=== PATIENT | female | born 1960 | race Caucasian/White ===

== ENCOUNTER 2019-01-21 07:49 | Outpatient (CLI) | payer MEDICAID ==
--- NOTE | 2019-01-27 09:13 | Mammography Report ---
Reason: MAMMOGRAM YEARLY SCREENING Procedure Date: 01/21/2019 Accession Number: [id number] / [id number] Procedure: JENNA - Screening Mammo w/Anthony CPT Code: FULL RESULT: EXAM: Screening Mammo w/Anthony DATE: 01/21/2019 8:33 AM CLINICAL HISTORY: Screening encounter. No reported risk factors. TECHNIQUE: (B) - Bilateral CC, laterally exaggerated CC, MLO views were obtained. COMPARISON: None PARENCHYMAL PATTERN: (A) - The breast(s) demonstrate(s) scattered fibroglandular densities. FINDINGS: There are coarse typically benign calcifications. There are no suspicious masses, calcifications, or areas of distortion. IMPRESSION: Benign findings. BI-RADS category 2. RECOMMENDATION: (ANNUAL) - Recommend routine annual screening mammography. BI-RADS CATEGORY: (2) - Benign Findings. STANDARD QUALIFYING STATEMENTS: 1. This examination was not reviewed with the aid of Computer-Aided Detection (CAD). 2. A negative or benign imaging report should not preclude biopsy if clinically suspicious findings are present. 3. Dense breasts may obscure an underlying neoplasm. 4. This examination was reviewed with the aid of 3D breast imaging (tomosynthesis).
== END 2019-01-21 07:50 | disposition home or self-care (01) ==
LOC: DI 07:49
PROVIDERS: ATTEND Nurse Practitioner
DX: Z12.31 Encounter for screening mammogram for malignant neoplasm of breast (principal)
CPT/HCPCS: 77063; 77067

== ENCOUNTER 2019-05-10 07:20 | Outpatient (CLI) | payer BC ==
[2019-05-10 07:59] LABS: BASOPHILS % (AUTO) 0.6 %; EOSINOPHILS # (AUTO) 0.1 10^3/uL (0.0-0.7); EOSINOPHILS % (AUTO) 2.1 %; HGB - HEMOGLOBIN 13.6 g/dL (12.0-16.0); LYMPHOCYTES # (AUTO) 1.6 10^3/uL (1.5-3.5); LYMPHOCYTES % (AUTO) 23.9 %; MEAN CORPUSCULAR HEMOGLOBIN 29.8 pg (27.0-31.0); MEAN CORPUSCULAR HGB CONC 32.9 g/dL (32.0-36.0); MEAN CORPUSCULAR VOLUME 90.8 fL (81.0-99.0); MEAN PLATELET VOLUME 10.9 fL (7.9-10.8); MONOCYTES # (AUTO) 0.3 10^3/uL (0.0-1.0); MONOCYTES % (AUTO) 5.2 %; NEUTROPHILS # (AUTO) 4.4 10^3/uL (1.5-6.6); NEUTROPHILS % (AUTO) 67.9 %; PLT - PLATELET COUNT 259 10^3/uL (130-450); RED BLOOD COUNT 4.56 10^6/uL (4.20-5.40); RED CELL DISTRIBUTION WIDTH 12.9 % (12.0-15.0); WHITE BLOOD COUNT 6.5 x10^3/uL (4.8-10.8)
[2019-05-10 08:02] LABS: HB2 TOTAL 14.3 g/dL; HEMOGLOBIN A1C 0.56 g/dL; HEMOGLOBIN A1C % 5.7 % (4.6-6.2)
[2019-05-10 08:13] LABS: ALBUMIN 4.1 g/dL (3.2-5.5); ALBUMIN/GLOBULIN RATIO 1.2 (1.0-2.2); ALKALINE PHOSPHATASE 72 IU/L (42-121); ALT ALANINE AMINOTRANSFERASE 19 IU/L (10-60); AST ASPARTATE AMINOTRANSFERASE 21 IU/L (10-42); BILIRUBIN,TOTAL 0.7 mg/dL (0.2-1.0); BUN - BLOOD UREA NITROGEN 16 mg/dL (6-20); CALCIUM 8.9 mg/dL (8.5-10.3); CARBON DIOXIDE - CO2 26 mmol/L (21-32); CHLORIDE 103 mmol/L (101-111); CHOL/HDL RATIO 5.5 (<4.4); CHOLESTEROL 238 mg/dL; CREATININE 0.8 mg/dL (0.4-1.0); GFR - MDRD 74 (>89); GLUCOSE 108 mg/dL (70-100); HDL CHOLESTEROL 43 mg/dL; LDL CHOLESTEROL,CALCULATED 175 mg/dL; LDL/HDL RATIO 4.1 (<4.4); SODIUM 139 mmol/L (135-145); TOTAL PROTEIN 7.5 g/dL (6.7-8.2); VLDL CHOLESTEROL 20 mg/dL
== END 2019-05-10 07:21 | disposition home or self-care (01) ==
LOC: LAB 07:20
PROVIDERS: ATTEND Nurse Practitioner
DX: Z00.00 Encounter for general adult medical examination without abnormal findings (principal); Z13.29 Encounter for screening for other suspected endocrine disorder; E78.5 Hyperlipidemia, unspecified; R73.01 Impaired fasting glucose; I10 Essential (primary) hypertension
CPT/HCPCS: 36415; 80053; 80061; 83036; 83721; 84443; 85025

== ENCOUNTER 2020-01-18 18:55 | Outpatient (CLI) | payer BC | END 2020-01-18 18:56 | disposition critical access hospital (66) | LOC: EMS 18:55 | PROVIDERS: ATTEND Surgery | DX: R07.89 Other chest pain (principal) | CPT/HCPCS: A0425; A0427 ==

== ENCOUNTER 2020-01-18 19:26 | Emergency (ER) | payer BC ==
[2020-01-18 19:58] LABS: BASOPHILS # (AUTO) 0.1 10^3/uL (0.0-0.1); BASOPHILS % (AUTO) 0.6 %; EOSINOPHILS # (AUTO) 0.2 10^3/uL (0.0-0.7); EOSINOPHILS % (AUTO) 2.6 %; HGB - HEMOGLOBIN 13.3 g/dL (12.0-16.0); LYMPHOCYTES # (AUTO) 2.6 10^3/uL (1.5-3.5); LYMPHOCYTES % (AUTO) 30.4 %; MEAN CORPUSCULAR HEMOGLOBIN 30.7 pg (27.0-31.0); MEAN CORPUSCULAR HGB CONC 34.4 g/dL (32.0-36.0); MEAN CORPUSCULAR VOLUME 89.4 fL (81.0-99.0); MEAN PLATELET VOLUME 10.9 fL (7.9-10.8); MONOCYTES # (AUTO) 0.4 10^3/uL (0.0-1.0); MONOCYTES % (AUTO) 5.1 %; NEUTROPHILS # (AUTO) 5.2 10^3/uL (1.5-6.6); NEUTROPHILS % (AUTO) 61.1 %; PLT - PLATELET COUNT 258 10^3/uL (130-450); RED BLOOD COUNT 4.33 10^6/uL (4.20-5.40); RED CELL DISTRIBUTION WIDTH 12.3 % (12.0-15.0); WHITE BLOOD COUNT 8.5 x10^3/uL (4.8-10.8)
--- NOTE | 2020-01-18 20:06 | XRAY Report ---
PROCEDURE: Chest 1 View X-Ray INDICATIONS: cp TECHNIQUE: One view of the chest was acquired. COMPARISON: none. FINDINGS: Surgical changes and devices: None. Lungs and pleura: No pleural effusions or pneumothorax. Lungs are clear. Mediastinum: Mediastinal contours appear normal. Heart size is normal. Bones and chest wall: No suspicious bony lesions. Overlying soft tissues appear unremarkable. IMPRESSION: No acute cardiopulmonary disease. Reviewed by: Kimberly Elmore MD on 01/18/2020 8:04 PM PDT Approved by: Kimberly Elmore MD on 01/18/2020 8:04 PM PDT Station ID: [id number]
[2020-01-18 20:09] LABS: ALBUMIN 4.1 g/dL (3.2-5.5); ALBUMIN/GLOBULIN RATIO 1.3 (1.0-2.2); BILIRUBIN,TOTAL 0.4 mg/dL (0.2-1.0); CALCIUM 9.1 mg/dL (8.5-10.3); CREATININE 0.7 mg/dL (0.4-1.0); TOTAL PROTEIN 7.2 g/dL (6.7-8.2)
--- NOTE | 2020-01-18 20:11 | ED Physician Documentation ---
PD HPI ABD PAIN - Stated complaint Stated Complaint: CHEST PRESSURE - Chief complaint Chief Complaint: Cardiac - History obtained from History obtained from: Patient - Additional information Additional information: 59-year-old woman without history of heart disease but does have risk factors including hyperlipidemia, hypertension, and family history. Midday day developed substernal chest pressure radiating to the posterior neck that was worse with exertion. Continued to have that constantly. Overnight last night developed abdominal bloating and vomiting. She is had sweats on and off. D enies shortness of breath or pedal edema. Review of Systems Ten Systems: 10 systems reviewed and negative Constitutional: denies: Fever, Chills Throat: denies: Sore throat Cardiac: reports: Chest pain / pressure. denies: Palpitations, Pedal edema, Calf pain PD PAST MEDICAL HISTORY - Present Medications Home Medications: Ambulatory Orders Medication Instructions Recorded Confirmed Atenolol [Tenormin] 50 mg PO DAILY 01/18/20 01/18/20 Clotrimazole [Antifungal Ringworm] 1 applic TOP PRN PRN 01/18/20 01/18/20 Omeprazole 10 mg PO DAILY 01/18/20 01/18/20 Ondansetron [Ondansetron Odt] 2 mg SL PRN 01/18/20 Rizatriptan Benzoate [Maxalt [employer]] 5 mg PO 01/18/20 - Allergies Allergies/Adverse Reactions: Allergies Allergy/AdvReac Type Severity Reaction Status Date / Time latex Allergy Anaphylaxis Verified 01/18/20 20:42 tetracycline Allergy Anaphylaxis Verified 01/18/20 20:42 PD ED PE NORMAL - Vitals Vital signs reviewed: Yes - General General: Alert and oriented X 3, No acute distress - HEENT HEENT: PERRL, EOMI - Neck Neck: Supple, no meningeal sign, No bony TTP - Cardiac Cardiac: RRR, No murmur - Respiratory Respiratory: No respiratory distress, Clear bilaterally - Abdomen Abdomen: Other (Mild tenderness in the right upper quadrant without surgical signs) - Extremities Extremities: No edema, No calf tenderness / cord - Neuro Neuro: Alert and oriented X 3, Normal speech Results - Vitals Vitals: Vital Signs - 24 hr 01/18/20 01/18/20 01/18/20 19:33 20:00 20:30 Temperature 37 C Heart Rate 63 59 L 54 L Respiratory 15 12 18 Rate Blood Pressure 160/72 H O2 Saturation 99 01/18/20 01/18/20 01/18/20 21:00 22:33 23:07 Temperature Heart Rate 55 L 58 L 60 Respiratory 15 21 11 L Rate Blood Pressure 145/81 H 152/69 H O2 Saturation 100 99 Oxygen O2 Source Room air - EKG (time done) 1945 Rate: Rate (enter#) (63) Rhythm: NSR [place]: Normal Intervals: Normal NH QRS: Normal Ischemia: Normal ST segments Computer interpretation: Agree with computer - Labs Labs: Laboratory Tests 01/18/20 01/18/20 01/18/20 19:44 19:44 19:44 WBC 8.5 RBC 4.33 Hgb 13.3 Hct 38.7 MCV 89.4 MCH 30.7 MCHC 34.4 RDW 12.3 Plt Count 258 MPV 10.9 H Neut # (Auto) 5.2 Lymph # (Auto) 2.6 [place]rell # (Auto) 0.4 Eos # (Auto) 0.2 Baso # (Auto) 0.1 Absolute Nucleated RBC 0.00 Nucleated RBC % 0.0 Sodium 137 Potassium 3.7 Chloride 103 Carbon Dioxide 27 Anion Gap 7.0 BUN 14 Creatinine 0.7 Estimated GFR (MDRD) 86 L Glucose 100 Calcium 9.1 Total Bilirubin 0.4 AST 17 ALT 17 Alkaline Phosphatase 69 Troponin I High Sens < 2.3 L Total Protein 7.2 Albumin 4.1 Globulin 3.1 Albumin/Globulin Ratio 1.3 Lipase 40 01/18/20 22:28 WBC RBC Hgb Hct MCV MCH MCHC RDW Plt Count MPV Neut # (Auto) Lymph # (Auto) Terrell # (Auto) Eos # (Auto) Baso # (Auto) Absolute Nucleated RBC Nucleated RBC % Sodium Potassium Chloride Carbon Dioxide Anion Gap BUN Creatinine Estimated GFR (MDRD) Glucose Calcium Total Bilirubin AST ALT Alkaline Phosphatase Troponin I High Sens 2.5 Total Protein Albumin Globulin Albumin/Globulin Ratio Lipase - Rads (name of study) 1v chest Radiology: EMP read contemporaneously (NAD) Abd sono Radiology: Prelim report reviewed (from [employer], Araceli Tubbs), EMP read contemporaneously (Gallbladder sludge and hepatic steatosis without cholelithiasis or biliary ductal dilatation. Although note made is she sent an addendum after the patient was discharge noting that she also had a gallstone) PD MEDICAL DECISION MAKING - ED course ED course: Fairly constant chest symptoms for the last couple of days, her EKG and serial troponins done in the department though were negative. Did have some right upper quadrant tenderness and found to have gallbladder sludge. Discussed that she needs a stress test but culprit lesion may be the gallbladder. Departure - Departure Disposition: 01 Home, Self Care Clinical Impression: Gallbladder sludge Chest pain Qualifiers: Chest pain type: unspecified Qualified Code(s): R07.9 - Chest pain, unspecified Condition: Good Record reviewed to determine appropriate education?: Yes Instructions: ED Abdominal Pain Gallstone Poss, ED Chest Pain Atypical Unkn Cause Comments: You were seen today for chest pain, also noted to have some right upper quadrant tenderness. Heart testing here was normal, that does not completely rule out a heart issue but makes it much less likely. You need to follow-up with your physician, next available appointment and discuss stress testing. If that is negative I would encourage you to have a referral to a general surgeon or to have further testing on your gallbladder to see if that is the culprit. Return if worse. Baby aspirin a day until advised otherwise by your physician. Discharge Date/Time: 01/18/20 23:14
[2020-01-18 23:07] VITALS: BP 152/69
--- NOTE | 2020-01-19 07:22 | Ultrasound Report ---
PROCEDURE: Abdomen Limited INDICATIONS: RUQ TTP TECHNIQUE: Real-time focused scanning was performed of the abdomen, with image documentation. COMPARISON: None FINDINGS: Liver is normal in size. Liver is diffusely echogenic. No focal hepatic mass lesions. Possible 4 mm gallstone (images 45-46). No gallbladder wall thickening. Gallbladder wall measures 1.2 mm. No pericholecystic fluid. No sonographic Fernando sign. Biliary tree is nondilated. Common bile duct measures 3.9 mm. Head and body pancreas are sonographically normal. Caloric pancreas is obscured by bowel gas. Right kidney is normal in size. 1.2 x 1.4 x 1.1 cm right renal cyst. IMPRESSION: 1. Possible cholelithiasis without sonographic evidence of cholecystitis. If there is continued clini lucrecia concern for cholecystitis, a nuclear medicine HIDA scan should be considered for further evaluati on. 2. Echogenic liver. Finding typically represents fatty infiltration, however finding is nonspecific a nd other etiologies including hepatic cirrhosis can produce a similar appearance. Please correlate wi th clinical and laboratory data. Reviewed by: Nidhi Mora MD, PhD on 01/19/2020 7:21 AM PDT Approved by: Nidhi Mora MD, PhD on 01/19/2020 7:21 AM PDT Station ID: [id number]
== END 2020-01-18 23:14 | disposition home or self-care (01) ==
LOC: EDUNIT# → ED 19:26
DX: R07.89 Other chest pain (principal); K82.8 Other specified diseases of gallbladder; K76.0 Fatty (change of) liver, not elsewhere classified; I25.10 Atherosclerotic heart disease of native coronary artery without angina pectoris; I10 Essential (primary) hypertension; E78.5 Hyperlipidemia, unspecified; Z82.49 Family history of ischemic heart disease and other diseases of the circulatory system
CPT/HCPCS: 36415; 71045; 76705; 80053; 83690; 84484; 85025; 93005; 99283; 99284

== ENCOUNTER 2020-03-10 12:19 | Outpatient (CLI) | payer BC ==
--- NOTE | 2020-03-10 14:14 | CARDIAC PROCEDURE NOTE ---
DATE OF SERVICE: 03/10/2020 Physician: Jenny Navarro MD, [facility] CARDIAC RISK FACTORS 1. Family history of early heart disease. 2. Hypertension. 3. Hyperlipidemia. 4. Postmenopausal status. DESCRIPTION OF PROCEDURE: After signing informed consent, a Luc-protocol treadmill stress test was performed. No imaging was ordered with this test. RESTING HEART RATE: 59. PEAK HEART RATE: 143 (88% predicted maximum heart rate for age). RESTING BLOOD PRESSURE: 150/75 and 131/75. PEAK BLOOD PRESSURE: 222/62. Patient exercised for 7 minutes and 35 seconds on a Luc-protocol treadmill stress test. She achieved a peak heart rate of 143 (88% PMHR) and 9.5 METs. She had moderate shortness of breath, no chest pain. She rated her perceived exertion at 16/20 on the Krysta scale at peak. Oxygen saturation was 96%-98% on room air throughout the test. She had a normal heart rate response to exercise, even having taken her Atenolol. Abnormal hypertensive blood pressure response to exercise. RESTING EKG: Normal sinus rhythm, left atrial enlargement, LVH voltage. EKG AT PEAK: [address] depressions developed in leads II, III, aVF, and V4 through V6. These changes resolve after 4 minutes of recovery. SUMMARY 1. Abnormal resting EKG, LVH is present, suggesting poorly controlled blood pressure. 2. Excessive blood pressure response to exercise. 3. Ischemic ST segment changes develop with exertion, at an adequate level of stress achieved. 4. No imaging was ordered with this test. 5. This patient's cardiac risk based on all the above: High. RECOMMENDATIONS 1. Recheck stress test with imaging; recommend either a treadmill test with nuclear imaging or a Lexiscan test with nuclear imaging. 2. Medications for better blood pressure control are advised, consider Amlodipine or other vasodilator. 3. Patient lists a diagnosis of hyperlipidemia, but she is on no cholesterol management with medications. 4. This report was called to Shannon Zamora's office today and I spoke to ANGELIQUE Baltazar. cc: JAIME Zimmerman NP-C TD: 03/10/2020 13:32 MTDCuco
== END 2020-03-10 12:20 | disposition home or self-care (01) ==
LOC: DI 12:19
PROVIDERS: ATTEND Nurse Practitioner
DX: R94.31 Abnormal electrocardiogram [ECG] [EKG] (principal); I11.9 Hypertensive heart disease without heart failure; E78.5 Hyperlipidemia, unspecified; Z78.0 Asymptomatic menopausal state; Z82.49 Family history of ischemic heart disease and other diseases of the circulatory system
CPT/HCPCS: 93016; 93017; 93018

== ENCOUNTER 2020-03-15 12:50 | Outpatient (CLI) | payer BC ==
--- NOTE | 2020-03-15 14:12 | CARDIAC PROCEDURE NOTE ---
DATE OF SERVICE: 03/14/2020 Physician: Jenny Navarro MD, [facility] INDICATIONS: Abnormal EKG, abnormal stress test. CARDIAC RISK FACTORS: Hypertension (uncontrolled), family history of heart disease, postmenopausal status. DESCRIPTION OF PROCEDURE: After signing informed consent, the patient underwent a Luc-protocol treadmill stress test with Echo imaging at rest and post- exercise. (Nuclear testing was ordered but the nuclear machine is broken and Echo is being substituted by my written order). RESTING HEART RATE: 62. PEAK HEART RATE: 160 (99% predicted maximum heart rate for age). RESTING BLOOD PRESSURE: 167/79. PEAK BLOOD PRESSURE: 220/69. (The patient did take morning Amlodipine but was told not take the evening Atenolol last night). The patient exercised for 6 minutes and 46 seconds on a Luc-protocol treadmill stress test. She achieved a peak heart rate of 160 (99% PMHR) and 8.2 METS. The patient had moderate shortness of breath and rated her perceived exertion at 15/20 on the Krysta scale at peak. Oxygen saturation was 98%-100% on room air throughout the test. The patient had no chest pain. RESTING EKG: Normal sinus rhythm, left atrial enlargement, LVH voltage present. EKG AT PEAK: [address]-depressions inferiorly and upsloping 1mm ST- depressions in V4 through V6. SUMMARY: 1. Abnormal resting EKG. 2. Poorly controlled blood pressure. 3. Fair to good exercise tolerance. 4. Ischemic EKG changes do occur at an adequately achieved heart rate. 5. Echo images reported separately. 6. This patient's cardiac risk based on all of the above: Moderate. cc: JAIME Zimmerman NP-C TD: 03/15/2020 13:53 [facility]
== END 2020-03-15 18:00 ==
LOC: DI 12:50
PROVIDERS: ATTEND Nurse Practitioner
DX: R94.31 Abnormal electrocardiogram [ECG] [EKG] (principal); I11.9 Hypertensive heart disease without heart failure; Z82.49 Family history of ischemic heart disease and other diseases of the circulatory system; Z78.0 Asymptomatic menopausal state
CPT/HCPCS: 93016; 93018; 93350

== ENCOUNTER 2020-06-13 17:08 | Emergency (ER) | payer BC ==
[2020-06-13] MEDS ORDERED: KETOROLAC 30 MG/ML VIAL IVP STA (17:59)
[2020-06-13] MEDS ORDERED: ONDANSETRON 4 MG/2 ML VIAL IVP STA (17:59)
[2020-06-13] MEDS ORDERED: MECLIZINE 12.5 MG TABLET PO STA (17:59)
[2020-06-13] MEDS ORDERED: SODIUM CHLORIDE 0.9% 1,000 ML IV STA (17:59)
--- NOTE | 2020-06-13 17:59 | ED Physician Documentation ---
History of Present Illness - Stated complaint Stated Complaint: DIZZY,CEBALLOS,VOMITING - Chief complaint Chief Complaint: General - History obtained from History obtained from: Patient - History of Present Illness Timing: How many days ago (2) Pain level max: 6 Pain level now: 4 - Additonal information Additional information: 60 year old female with dizziness today. Feels the room spinning. States similar to prior episodes of BPPV. Worse with movement, better with rest. She states that her neck feels sore as well from sitting on her recliner. Has not taken anything for this. No trauma. No fever. No recent illness. Review of Systems Ten Systems: 10 systems reviewed and negative Constitutional: denies: Fever, Chills Nose: denies: Rhinorrhea / runny nose, Congestion Cardiac: denies: Chest pain / pressure Respiratory: denies: Dyspnea, Cough GI: reports: Nausea, Vomiting. denies: Constipation, Diarrhea Skin: denies: Rash Musculoskeletal: denies: Back pain Neurologic: denies: Focal weakness, Numbness, Seizure, Confused, LOC PD PAST MEDICAL HISTORY - Past Medical History Cardiovascular: Hypertension, High cholesterol Respiratory: None Neuro: Migraines Endocrine/Autoimmune: Other GI: GERD, Diverticulitis LABORATORY CLERK: Fibroids, Other : None HEENT: Other Psych: Anxiety Musculoskeletal: None Derm: None - Past Surgical History Past Surgical History: Yes Ortho: Other /LABORATORY CLERK: section, Hysterectomy HEENT: Tonsil/Adenoidectomy - Present Medications Home Medications: Ambulatory Orders Medication Instructions Recorded Confirmed Atenolol [Tenormin] 50 mg PO DAILY 01/18/20 01/18/20 Clotrimazole [Antifungal Ringworm] 1 applic TOP PRN PRN 01/18/20 01/18/20 Omeprazole 10 mg PO DAILY 01/18/20 01/18/20 Ondansetron [Ondansetron Odt] 2 mg SL PRN 01/18/20 Rizatriptan Benzoate [Maxalt [employer]] 5 mg PO 01/18/20 Meclizine HCl [Antivert] 25 mg PO Q6H PRN #20 tablet 06/13/20 Ondansetron Odt [Zofran] 4 mg TL Q6H PRN #10 tablet 06/13/20 - Allergies Allergies/Adverse Reactions: Allergies Allergy/AdvReac Type Severity Reaction Status Date / Time latex Allergy Anaphylaxis Verified 06/13/20 17:23 tetracycline Allergy Anaphylaxis Verified 06/13/20 17:23 - Social History Does the pt smoke?: Yes Smoking Status: Current every day smoker Does the pt drink ETOH?: No Does the pt have substance abuse?: No - Immunizations Immunizations are current?: Yes - POLST Patient has POLST: No PD ED PE NORMAL - Vitals Vital signs reviewed: Yes - General General: Alert and oriented X 3, No acute distress, Well developed/nourished - HEENT HEENT: Atraumatic, PERRL, EOMI, Ears normal, Moist mucous membranes, Pharynx benign, Other (Positive Hallpike to the right. Horizontal nystagmus) - Neck Neck: Supple, no meningeal sign - Cardiac Cardiac: RRR, Strong equal pulses - Respiratory Respiratory: No respiratory distress, Clear bilaterally - Abdomen Abdomen: Soft, Non tender, Non distended - Derm Derm: Warm and dry - Neuro Neuro: Alert and oriented X 3, data security consultant 2-12 intact, No motor deficit, No sensory deficit, Normal speech - Psych Psych: Normal mood, Normal affect Results - Vitals Vitals: Vital Signs - 24 hr 06/13/20 06/13/20 06/13/20 17:20 17:30 18:20 Temperature 36.3 C L Heart Rate 66 57 L 56 L Respiratory 17 16 17 Rate Blood Pressure 155/68 H 139/64 H 139/61 H O2 Saturation 100 97 100 06/13/20 18:30 Temperature Heart Rate 51 L Respiratory 17 Rate Blood Pressure 141/58 H O2 Saturation 99 Oxygen O2 Source Room air - Labs Labs: Laboratory Tests 06/13/20 06/13/20 18:00 18:00 WBC 9.4 RBC 4.27 Hgb 13.5 Hct 39.2 MCV 91.8 MCH 31.6 H MCHC 34.4 RDW 12.6 Plt Count 279 MPV 10.6 Neut # (Auto) 6.5 Lymph # (Auto) 2.2 [place] # (Auto) 0.4 Eos # (Auto) 0.1 Baso # (Auto) 0.1 Absolute Nucleated RBC 0.00 Nucleated RBC % 0.0 Sodium 139 Potassium 3.8 Chloride 103 Carbon Dioxide 28 Anion Gap 8.0 BUN 13 Creatinine 0.8 Estimated GFR (MDRD) 73 L Glucose 94 Calcium 9.0 PD MEDICAL DECISION MAKING - ED course Complexity details: reviewed results, re-evaluated patient, considered differential, d/w patient ED course: Patient with what appears to be BPPV. Feels much better after meclizine and Zofran. Also given Toradol. Neck discomfort resolved. No evidence of subarachnoid hemorrhage, tumor, mass. Normal cerebellar testing. Normal gait. We will prescribe meclizine for home and have her follow-up with her doctor for further care. Patient counseled regarding signs and symptoms for which I believe and urgent re-evaluation would be necessary. Patient with good understanding of and agreement to plan and is comfortable going home at this time This document was made in part using voice recognition software. While efforts are made to proofread this document, sound alike and grammatical errors may occur. Departure - Departure Disposition: Home, Self Care Clinical Impression: Vertigo Headache Qualifiers: Headache type: unspecified Headache chronicity pattern: acute headache Intractability: not intractable Qualified Code(s): R51.9 - Headache, unspecified Condition: Good Instructions: ED Vertigo Unspecified Follow-Up: Shannon Zamora ARNP, [facility] [employer] ADMIN-C [Primary Care Provider] - Within 1 week Prescriptions: Meclizine HCl [Antivert] 25 mg PO Q6H PRN #20 tablet PRN Reason: Vertigo Ondansetron Odt [Zofran] 4 mg TL Q6H PRN #10 tablet PRN Reason: Nausea / Vomiting Comments: Use the medications as prescribed. Return if you worsen. You can also try the Lorena maneuver or half somersault maneuver at home. Discharge Date/Time: 06/13/20 19:13
[2020-06-13 18:12] LABS: BASOPHILS # (AUTO) 0.1 10^3/uL (0.0-0.1); BASOPHILS % (AUTO) 0.5 %; EOSINOPHILS # (AUTO) 0.1 10^3/uL (0.0-0.7); EOSINOPHILS % (AUTO) 0.9 %; HGB - HEMOGLOBIN 13.5 g/dL (12.0-16.0); LYMPHOCYTES # (AUTO) 2.2 10^3/uL (1.5-3.5); LYMPHOCYTES % (AUTO) 23.7 %; MEAN CORPUSCULAR HEMOGLOBIN 31.6 pg (27.0-31.0); MEAN CORPUSCULAR HGB CONC 34.4 g/dL (32.0-36.0); MEAN CORPUSCULAR VOLUME 91.8 fL (81.0-99.0); MEAN PLATELET VOLUME 10.6 fL (7.9-10.8); MONOCYTES # (AUTO) 0.4 10^3/uL (0.0-1.0); MONOCYTES % (AUTO) 4.7 %; NEUTROPHILS # (AUTO) 6.5 10^3/uL (1.5-6.6); NEUTROPHILS % (AUTO) 69.7 %; PLT - PLATELET COUNT 279 10^3/uL (130-450); RED BLOOD COUNT 4.27 10^6/uL (4.20-5.40); RED CELL DISTRIBUTION WIDTH 12.6 % (12.0-15.0); WHITE BLOOD COUNT 9.4 x10^3/uL (4.8-10.8)
[2020-06-13 18:22] LABS: CREATININE 0.8 mg/dL (0.4-1.0)
[2020-06-13 18:42] VITALS: BP 141/58
== END 2020-06-13 19:13 | disposition home or self-care (01) ==
LOC: ED 17:08
DX: H81.10 Benign paroxysmal vertigo, unspecified ear (principal); R51.9 Headache, unspecified; I10 Essential (primary) hypertension; F17.200 Nicotine dependence, unspecified, uncomplicated
CPT/HCPCS: 36415; 80048; 85025; 96361; 96374; 96375; 99283; 99284; A9270